=== PATIENT | female | born 1985 | race Caucasian/White ===

== ENCOUNTER 2018-04-05 00:55 | Inpatient (IN) | payer BC, MEDICAID, OTHER ==
[2018-04-04 20:00] VITALS: BP 101/62
[~2018-04-05] VITALS: Ht 160 cm; Wt 54.4 kg
--- NOTE | 2018-04-05 01:00 | NUR ---
PT BIBS. COMP OF "SUDDEN L SIDE BACK/LEG PAIN WHILE DANCING' -SOB. -N/V -DIZZINESS. MD AT BEDSIDE.
[2018-04-05] MEDS ORDERED: HYDROMORPHONE 1 MG/1 ML DISP.SYRIN ONE (01:50)
[2018-04-05] MEDS ORDERED: KETOROLAC TROMETHAMINE INJ 60 MG/2 ML VIAL IM ONE ×2 (01:50→02:00)
[2018-04-05] MEDS ORDERED: HYDROMORPHONE 1 MG/1 ML DISP.SYRIN IM ONE (02:00)
--- NOTE | 2018-04-05 03:29 | NUR ---
Patient is resting comfortably in bed with eyes closed. Easily aroused. VSS
[2018-04-05] MEDS ORDERED: oxyCODONE/APAP (5/325 MG) 1 UDTAB TABLET ONE (03:44)
[2018-04-05] MEDS ORDERED: DIAZEPAM 5 MG TABLET ONE (03:44)
[2018-04-05] MEDS ORDERED: oxyCODONE/APAP (5/325 MG) 1 UDTAB TABLET PO ONE (04:00)
[2018-04-05] MEDS ORDERED: DIAZEPAM 10 MG TABLET PO ONE (04:00)
[2018-04-05 05:00] LABS: BASOPHILS # (AUTO) 0.1 /CMM (0.0-0.2); BASOPHILS % (AUTO) 0.8 % (0.0-2.0); EOSINOPHILS % (AUTO) 0.8 % (0.0-6.0); HEMATOCRIT 37 % (33-45); HEMOGLOBIN 12.4 g/dL (11.5-14.8); LYMPHOCYTES # (AUTO) 2.5 /CMM (0.8-4.8); LYMPHOCYTES % (AUTO) 27.7 % (20.0-44.0); MEAN CORPUSCULAR HGB CONC 33 g/dl (31.0-36.0); MEAN CORPUSCULAR VOLUME 90 fL (82-100); MONOCYTES # (AUTO) 0.8 /CMM (0.1-1.30); MONOCYTES % (AUTO) 8.9 % (2.0-12.0); NEUTROPHILS # (AUTO) 5.5 /CMM (1.8-8.9); NEUTROPHILS % (AUTO) 61.8 % (43.0-81.0); PLATELET COUNT (AUTO) 148 /CMM (150-450); RED BLOOD CELL COUNT(AUTO) 4.11 MIL/uL (4.0-5.2); WHITE BLOOD COUNT (AUTO) 8.9 K/uL (4.3-11.0)
[2018-04-05] MEDS ORDERED: IV NS 0.9% 1,000 ML IV PRN (05:03)
[2018-04-05 05:04] LABS: CALCIUM, SERUM 8.6 mg/dL (8.5-10.1); CREATININE 0.7 mg/dL (0.6-1.3); POTASSIUM 4.3 mmol/L (3.5-5.1)
[2018-04-05] MEDS ORDERED: ACETAMINOPHEN 325 MG TABLET PO PRN (05:30)
[2018-04-05] MEDS ORDERED: ZOLPIDEM TARTRATE 5 MG TABLET PO PRN (05:30)
[2018-04-05] MEDS ORDERED: MAG HYDROX/AL HYDROX/SIMETH 30 ML UDC PO PRN (05:30)
[2018-04-05] MEDS ORDERED: Z GUARD REMEDY 2 OZ OINT TP PRN (05:30)
[2018-04-05] MEDS ORDERED: MAGNESIUM HYDROXIDE 30 ML UDC PO PRN (05:30)
[2018-04-05] MEDS ORDERED: ONDANSETRON HCL/PF 4 MG/2 ML VIAL IVP PRN (05:30)
[2018-04-05 05:31] LABS: MAGNESIUM 1.8 mg/dL (1.8-2.4); PHOSPHORUS 3.5 mg/dL (2.5-4.9)
--- NOTE | 2018-04-05 05:37 | NUR ---
REPORT GIVEN TO ABDOUL BIRD.
--- NOTE | 2018-04-05 06:37 | NUR ---
MS RN NOTES AWAKE & RESPONSIVE. NOT IN ANY DISTRESS. NO SOB NOTED. DENIES ANY PAIN OR DISCOMFORT AT THIS TIME. WITH IV-HL PATENT & INTACT. CALL LIGHT WITHIN REACH. BED IN LOWEST POSITION. SR UP X 3 WITH BED ALARM ON FOR SAFETY. WILL ENDORSE TO NEXT SHIFT.
[2018-04-05 08:00] VITALS: BP 110/70
--- NOTE | 2018-04-05 08:00 | NUR ---
RN NOTES RECEIVED PATIENT IN THE BED A/A/O X4, PATIENT WAS NO ACUTE RESPIRATORY DISTRESS, V/S STABLE WAS COMPLAINING OF LOWER BACK PAIN. IV ACCESS ON RIGHT AC AREA INTACT. NEEDS ATTENDED AND ANTICIPATED, FRIEND NEXT TO THE BED, CALL LIGHT WITHIN TO REACH, CONTINUED MONITORING.
[2018-04-05] MEDS: CYCLOBENZAPRINE 10 MG TABLET PO SCH ×2 (08:18→16:22)
[2018-04-05] MEDS: HYDROMORPHONE INJ 2 MG/ML DISP.SYRIN IV PRN ×2 (08:20→13:00)
--- NOTE | 2018-04-05 08:20 | NUR ---
RN NOTES ADMINISTERED DILAUDID 0.5 MG/ML IV PUSH PER PATIENT REQUEST FOR PAIN LOWER BACK 08/02, V/S TAKEN BP- 110/70, P-60. CONTINUED MONITORING.
--- NOTE | 2018-04-05 13:00 | NUR ---
RN NOTES ADMINISTERED ZOFRAN 4 MG/ML IV PUSH FOR NAUSEA AND VOMITING, AND DILAUDID 0.5 MG/ML IV PUSH FOR LOWER BACK PAIN 09/01 PER PATIENT REQUEST, V/S TAKEN BP 120/71, P-76, CONTINUED MONITORING. FRIEND NEXT TO THE BED.
--- NOTE | 2018-04-05 13:40 | NUR ---
RN NOTES PATIENT BONE DENSITY TECHNICIAN FOR CT OF LOWER LUMBAR , AND SACRUM PER MD ORDER.
--- NOTE | 2018-04-05 14:00 | NUR ---
RN NOTES PATIENT BACK FROM CT STABLE, MEDICATION WERE ADMINISTERED FOR NAUSEA, AND PAIN EFFECTIVE. CONTINUED MONITORING.
[2018-04-05] MEDS ORDERED: KEY,NONCONTROL,TO KEEP IN PYXI 1 EA MC ONE (15:06)
[2018-04-05 16:00] VITALS: BP 101/56
[2018-04-05] MEDS: HYDROCODONE/APAP 5/325MG 1 EACH TABLET PO PRN ×2 (16:27→21:27)
--- NOTE | 2018-04-05 16:27 | NUR ---
RN NOTES ADMINISTERED NARCO 5/325 MG PO PRN FOR LOWER BACK PAIN 08/02 PER PATIENT REQUEST, V/S TAKEN BP 101/50, P-50, CONTINUED MONITORING.
--- NOTE | 2018-04-05 18:00 | NUR ---
RN NOTES PATIENT REFUSED TO TRANSFER ANOTHER HOSPITAL, WANTED TO SIGN AMA. NOTIFIED Dr ANTONIO, AND CASE MANAGEMENT. CASE MANAGEMENT SPOKE TO THE PATIENT AND EXPLAINED REASON FOR TRANSFER . PATIENT VERBALIZED UNDERSTANDING AND AGREE TO TRANSFER [facility] .
--- NOTE | 2018-04-05 18:45 | NUR ---
RN NOTES PATIENT GOING TO D/C [facility] AT [address] [facility]ANCE. CALLED AND GIVE REPORT RAY DINKEY MECHANIC. RN VERBALIZED UNDERSTANDING. ENDORSED ONCOMING NURSE FOR PLAN OF CARE.
--- NOTE | 2018-04-05 19:20 | NUR ---
MS RN OPENING NOTES Received patient in bed, alert, oriented x 4. Breathing even and unlabored. Not in any distress. Friend at bedside. No complaints as of this time. As per AM RN report, patient is for transfer to [facility], report was already given to RN Roman- Manager Women. To leave IV line upon discharge as per report. Call mendez within reach. Bed in low, locked position. Will monitor accordingly
[2018-04-05 20:00] VITALS: BP 101/62
--- NOTE | 2018-04-05 21:28 | NUR ---
RN NOTES Patient c/o back pain, 08/02. [place]far[place] 5 PO given as ordered. will continue to monitor
--- NOTE | 2018-04-05 23:26 | NUR ---
RN NOTES Patient for transfer to [facility]. report was already given to RN Superintendent Logging Denis by AMRGE Serra. IV access on RAC left as per report from AM RN. All documents including CD given to [facility] staff. Patient left in stable condition.
== END 2018-04-05 23:25 | disposition short-term general hospital (02) | DRG 347 ==
LOC: ER 01:13 → MED 05:24
DX: S39.002A Unspecified injury of muscle, fascia and tendon of lower back, initial encounter (principal); F32.9 Major depressive disorder, single episode, unspecified; G47.00 Insomnia, unspecified; W18.30XA Fall on same level, unspecified, initial encounter; Y93.41 Activity, dancing; Y92.89 Other specified places as the place of occurrence of the external cause; M54.9 Dorsalgia, unspecified
CPT/HCPCS: 36415; 72110-TC; 72131-TC; 72192-TC; 80048-TC; 80061-TC; 83735-TC; 84100-TC; 84702-TC; 85025-TC; 85610-TC; 85730-TC; G0378; J1170; J1885; J2405; J7030

== ENCOUNTER 2018-06-19 20:30 | Emergency (ER) | payer OTHER ==
[~2018-06-19] VITALS: Ht 160 cm; Wt 54.4 kg
--- NOTE | 2018-06-19 20:50 | NUR ---
PT BIBSELF C/O SAENZ, VOMITTING X 2 DAYS, VS STABLE, PLACED ON ER BED 2, SEEN AND EVAL DONE BY PA, AWAITING ORDERS.
[2018-06-19] MEDS ORDERED: IV NS 0.9% 1,000 ML BAG IV ONE (21:30)
[2018-06-19] MEDS ORDERED: ONDANSETRON 4 MG TAB.RAPDIS PO ONE (21:30)
[2018-06-19] MEDS ORDERED: METOCLOPRAMIDE HCL 10 MG/2 ML VIAL IV ONE (21:30)
[2018-06-19] MEDS ORDERED: diphenhydrAMINE HCL 50 MG/ML VIAL IV ONE (21:30)
[2018-06-19] MEDS ORDERED: METOCLOPRAMIDE HCL 10 MG/2 ML VIAL ONE (21:51)
[2018-06-19] MEDS ORDERED: diphenhydrAMINE HCL ELIX 25 MG/10 ML UDC ONE (21:51)
[2018-06-19] MEDS ORDERED: ONDANSETRON 4 MG TAB.RAPDIS ONE (21:51)
[2018-06-19] MEDS ORDERED: diphenhydrAMINE HCL 50 MG/ML VIAL ONE (21:53)
[2018-06-19 22:14] LABS: BASOPHILS % (AUTO) 0.4 % (0.0-2.0); EOSINOPHILS % (AUTO) 0.5 % (0.0-6.0); HEMATOCRIT 41 % (33-45); HEMOGLOBIN 13.7 g/dL (11.5-14.8); LYMPHOCYTES % (AUTO) 17.7 % (20.0-44.0); MEAN CORPUSCULAR HGB CONC 34 g/dl (31.0-36.0); MEAN CORPUSCULAR VOLUME 89 fL (82-100); MONOCYTES # (AUTO) 0.9 /CMM (0.1-1.30); MONOCYTES % (AUTO) 7.8 % (2.0-12.0); NEUTROPHILS # (AUTO) 8.2 /CMM (1.8-8.9); NEUTROPHILS % (AUTO) 73.6 % (43.0-81.0); PLATELET COUNT (AUTO) 156 /CMM (150-450); RED BLOOD CELL COUNT(AUTO) 4.55 MIL/uL (4.0-5.2); WHITE BLOOD COUNT (AUTO) 11.1 K/uL (4.3-11.0)
[2018-06-19 22:21] LABS: CREATININE 0.7 mg/dL (0.6-1.3); POTASSIUM 3.6 mmol/L (3.5-5.1)
[2018-06-19 22:27] LABS: ALBUMIN 4.3 g/dL (3.4-5.0); BILIRUBIN,DIRECT 0.1 mg/dL (0.0-0.2); BILIRUBIN,TOTAL 0.3 mg/dL (0.2-1.0); TOTAL PROTEIN, SERUM 7.9 g/dL (6.4-8.2)
--- NOTE | 2018-06-19 23:24 | NUR ---
Patient discharged to home in stable condition. Written rx and verbal after care instructions given. Patient verbalizes understanding of instruction.
[2018-06-19 23:25] VITALS: BP 112/77
== END 2018-06-19 23:26 | disposition home or self-care (01) ==
LOC: ER 20:31
DX: R11.2 Nausea with vomiting, unspecified (principal); R51 Headache; F12.90 Cannabis use, unspecified, uncomplicated; M54.9 Dorsalgia, unspecified; F32.9 Major depressive disorder, single episode, unspecified; G47.00 Insomnia, unspecified; Z90.89 Acquired absence of other organs; Z91.018 Allergy to other foods
CPT/HCPCS: 36415; 80048; 80076; 85025; 96361; 96374; 96375; 99283; J1200; J2765; J7030; Q0162; Q0163

== ENCOUNTER 2018-08-21 05:41 | Emergency (ER) | payer OTHER ==
[~2018-08-21] VITALS: Ht 160 cm; Wt 54.4 kg
--- NOTE | 2018-08-21 05:45 | NUR ---
TO BED 2 BIB PARAMEDICS C/O N/V X 2 DAYS, PT SEEN AT URGENT CARE DX'D WITH STREP THROAT AND WAS PRESCRIBED AMOXICILLIN AND ZOFRAN. PT AAOX4 NO ACUTE DISTRESS NOTED, RESP EVEN AND UNLABORED. PENDING ER MD CAI.
--- NOTE | 2018-08-21 05:50 | NUR ---
PT UNABLE TO PROVIDE URINE SAMPLE AT THIS TIME.
[2018-08-21] MEDS ORDERED: DEXAMETHASONE SOD PHOSPHATE 10 MG/ML VIAL ONE (06:25)
[2018-08-21] MEDS ORDERED: KETOROLAC TROMETHAMINE 15 MG/ML VIAL ONE (06:25)
[2018-08-21] MEDS ORDERED: ONDANSETRON HCL/PF 4 MG/2 ML VIAL ONE (06:26)
[2018-08-21] MEDS ORDERED: KETOROLAC TROMETHAMINE INJ 30 MG/ML VIAL IV ONE (06:30)
[2018-08-21] MEDS ORDERED: DEXAMETHASONE SOD PHOSPHATE 10 MG/ML VIAL IV ONE (06:30)
[2018-08-21] MEDS ORDERED: ONDANSETRON HCL/PF 4 MG/2 ML VIAL IVP ONE (06:30)
[2018-08-21] MEDS ORDERED: IV NS 0.9% 1,000 ML BAG IV ONE (06:30)
--- NOTE | 2018-08-21 06:36 | NUR ---
PT MEDICATED BY RN PER ER MD ORDER.
[2018-08-21 06:39] LABS: BASOPHILS % (AUTO) 0.4 % (0.0-2.0); EOSINOPHILS % (AUTO) 0.1 % (0.0-6.0); HEMATOCRIT 39 % (33-45); HEMOGLOBIN 13.3 g/dL (11.5-14.8); LYMPHOCYTES # (AUTO) 0.8 /CMM (0.8-4.8); LYMPHOCYTES % (AUTO) 6.9 % (20.0-44.0); MEAN CORPUSCULAR HGB CONC 34 g/dl (31.0-36.0); MEAN CORPUSCULAR VOLUME 88 fL (82-100); MONOCYTES # (AUTO) 1.1 /CMM (0.1-1.30); MONOCYTES % (AUTO) 9.5 % (2.0-12.0); NEUTROPHILS # (AUTO) 9.8 /CMM (1.8-8.9); NEUTROPHILS % (AUTO) 83.1 % (43.0-81.0); PLATELET COUNT (AUTO) 118 /CMM (150-450); RED BLOOD CELL COUNT(AUTO) 4.41 MIL/uL (4.0-5.2); WHITE BLOOD COUNT (AUTO) 11.8 K/uL (4.3-11.0)
[2018-08-21 06:47] LABS: CALCIUM, SERUM 9.2 mg/dL (8.5-10.1); CREATININE 0.8 mg/dL (0.6-1.3); POTASSIUM 3.9 mmol/L (3.5-5.1)
[2018-08-21 07:05] LABS: MONOTEST NEGATIVE (NEGATIVE)
--- NOTE | 2018-08-21 07:13 | NUR ---
REPORT GIVEN TO AM SHIFT MARGE SILVA
[2018-08-21] MEDS ORDERED: PENICILLIN G BENZATHINE 2.4 MMU/4 ML ML IM ONE ×2 (07:30→07:43)
--- NOTE | 2018-08-21 08:13 | NUR ---
PIV REMOVED, RX PROVIDED. Patient discharged to home in stable condition. Written and verbal after care instructions given. Patient verbalizes understanding of instruction.
[2018-08-21 08:14] VITALS: BP 108/66
== END 2018-08-21 08:15 | disposition home or self-care (01) ==
LOC: ER 05:47
DX: J02.0 Streptococcal pharyngitis (principal); E86.0 Dehydration; F32.9 Major depressive disorder, single episode, unspecified; G47.00 Insomnia, unspecified; Z90.89 Acquired absence of other organs; Z91.018 Allergy to other foods
CPT/HCPCS: 36415; 80048; 84703; 85025; 86308; 96361; 96372; 96374; 96375; 99283; J0558; J1100; J1885; J2405; J7030

== ENCOUNTER 2020-03-29 21:47 | Emergency (ER) | payer MEDICAID, OTHER ==
[~2020-03-29] VITALS: Ht 160 cm; Wt 59.0 kg
[2020-03-29 22:12] VITALS: BP 132/78
[2020-03-29] MEDS ORDERED: GELATIN SPONGE,ABSORBABLE 1 SPONGE SPONGE TP ONE (22:18)
== END 2020-03-29 23:33 | disposition home or self-care (01) ==
LOC: ER 21:55
DX: S61.012A Laceration without foreign body of left thumb without damage to nail, initial encounter (principal); F32.9 Major depressive disorder, single episode, unspecified; G47.00 Insomnia, unspecified; Z90.89 Acquired absence of other organs; Z91.018 Allergy to other foods; X58.XXXA Exposure to other specified factors, initial encounter; Y93.89 Activity, other specified; Y92.89 Other specified places as the place of occurrence of the external cause; Y99.8 Other external cause status
CPT/HCPCS: 99282; A6403

== ENCOUNTER 2020-08-27 09:56 | Emergency (ER) | payer MEDICAID ==
[~2020-08-27] VITALS: Ht 160 cm; Wt 62.1 kg
--- NOTE | 2020-08-27 09:58 | NUR ---
Dr. Geronimo at the bedside.
--- NOTE | 2020-08-27 10:00 | NUR ---
The patient is BIBRA 102 from urgent care c/o SOB post bee sting, given a total of 0.6mg epi, 50mg benadryl and 5mg albuterol CUSTOMER EXPERIENCE INTERN in ER. The patient with c/o of mild SOB and tightness in throat which the patient states is getting better. Noted undereye puffiness. The patient denies pain. Patient`s oxygen saturation in room air is WNL. Will continue to monitor the patient.
--- NOTE | 2020-08-27 10:18 | NUR ---
The patient is in room air and denies SOB. Denies having tightness in throat. Respiration regular and unlabored.
[2020-08-27] MEDS ORDERED: EPIN0.3P3 IJ (10:34)
[2020-08-27 10:43] VITALS: BP 137/61
--- NOTE | 2020-08-27 10:43 | NUR ---
Patient discharged to home in stable condition. Written and verbal after care instructions given. Patient verbalizes understanding of instruction.IV removed. Catheter intact and site benign. Pressure and 4x4 applied to site. No bleeding noted.
[2020-08-28] MEDS ORDERED: PRED20TA PO (10:10)
[2020-08-28] MEDS ORDERED: FAMO-131 PO (10:10)
[2020-08-28] MEDS ORDERED: DIPH25CA83 PO (10:10)
[2020-08-28] MEDS ORDERED: ONDA4TAB5 PO (11:21)
== END 2020-08-27 10:43 | disposition home or self-care (01) ==
LOC: ER 10:04
DX: T63.441A Toxic effect of venom of bees, accidental (unintentional), initial encounter (principal); R22.0 Localized swelling, mass and lump, head; F32.9 Major depressive disorder, single episode, unspecified; G47.00 Insomnia, unspecified; Z90.89 Acquired absence of other organs; Z91.018 Allergy to other foods; Y92.89 Other specified places as the place of occurrence of the external cause

== ENCOUNTER 2020-08-28 09:26 | Emergency (ER) | payer MEDICAID ==
[~2020-08-28] VITALS: Ht 160 cm; Wt 61.2 kg
[~2020-08-28 09:26] MED LIST: EPIN0.3P3 IJ
--- NOTE | 2020-08-28 09:35 | NUR ---
PATIENT CAME IN TO THE ER C/O DIZZY, HEADACHE, BODY PAIN SINCE LAST NIGHT. SEEN YESTERDAY S/P BEE STING. ON ROOM AIR, BREATHING EVENLY AND UNLABORED. CONNECTED TO THE MONITOR AND PULSE OX. KEPT COMFORTABLE, WILL CONTINUE TO MONITOR ACCORDINGLY.
--- NOTE | 2020-08-28 09:46 | NUR ---
DR CHOWDHURY AT BEDSIDE FOR EVAL.
[2020-08-28] MEDS ORDERED: methylPREDNISolone SOD SUCC 125 MG/2ML VIAL ONE (09:51)
[2020-08-28] MEDS ORDERED: diphenhydrAMINE HCL 50 MG/ML VIAL ONE (09:51)
[2020-08-28] MEDS ORDERED: FAMOTIDINE/PF INJ 20 MG/2 ML VIAL IV ONE ×2 (09:51→10:00)
[2020-08-28] MEDS ORDERED: diphenhydrAMINE HCL 50 MG/ML VIAL IV ONE (10:00)
[2020-08-28] MEDS ORDERED: IV NS 0.9% 1,000 ML BAG IV ONE (10:00)
[2020-08-28] MEDS ORDERED: methylPREDNISolone SOD SUCC 125 MG/2ML VIAL IV ONE (10:00)
[2020-08-28] MEDS ORDERED: DIPH25CA83 PO (10:10)
[2020-08-28] MEDS ORDERED: PRED20TA PO (10:10)
[2020-08-28] MEDS ORDERED: FAMO-131 PO (10:10)
--- NOTE | 2020-08-28 10:11 | NUR ---
IV LINE STARTED BLOOD DRAWN AND SENT TO LAB.
[2020-08-28 10:20] LABS: BASOPHILS % (AUTO) 0.5 % (0.0-2.0); EOSINOPHILS % (AUTO) 1.7 % (0.0-6.0); HEMATOCRIT 40 % (33-45); HEMOGLOBIN 13.4 g/dL (11.5-14.8); LYMPHOCYTES # (AUTO) 2.2 K/uL (0.8-4.8); LYMPHOCYTES % (AUTO) 23.9 % (20.0-44.0); MEAN CORPUSCULAR HGB CONC 34 g/dl (31.0-36.0); MEAN CORPUSCULAR VOLUME 88 fL (82-100); MONOCYTES # (AUTO) 0.8 K/uL (0.1-1.30); MONOCYTES % (AUTO) 9.3 % (2.0-12.0); NEUTROPHILS # (AUTO) 5.8 K/uL (1.8-8.9); NEUTROPHILS % (AUTO) 64.6 % (43.0-81.0); PLATELET COUNT (AUTO) 166 K/uL (150-450); RED BLOOD CELL COUNT(AUTO) 4.55 MIL/uL (4.0-5.2)
[2020-08-28 10:23] LABS: CREATININE 0.7 mg/dL (0.6-1.3); POTASSIUM 3.9 mmol/L (3.5-5.1)
[2020-08-28 10:29] LABS: BILIRUBIN,DIRECT 0.1 mg/dL (0.0-0.2); BILIRUBIN,TOTAL 0.4 mg/dL (0.2-1.0); TOTAL PROTEIN, SERUM 7.8 g/dL (6.4-8.2)
[2020-08-28 11:02] LABS: BILIRUBIN,URINE Negative (NEGATIVE); LEUKOCYTE ESTERASE ,URINE Negative (NEGATIVE); NITRITE, URINE Negative (NEGATIVE); PROTEIN,URINE Negative (NEGATIVE); UGLUCOSE Negative (NEGATIVE); UROBILINOGEN,URINE 0.2 EU/dL (0.2)
[2020-08-28 11:04] LABS: COLOR,URINE STRAW (YELLOW)
[2020-08-28] MEDS ORDERED: ONDA4TAB5 PO (11:21)
[2020-08-28 11:25] LABS: BACTERIA,URINE Rare /HPF (None Seen); RBC,URINE NONE SEEN /HPF (0-2); SQUAMOUS EPITHELIAL CELL,UR Few /HPF (None Seen); WBC,URINE 0-2 /HPF (0-3)
[2020-08-28 11:51] VITALS: BP 121/72
== END 2020-08-28 11:52 | disposition home or self-care (01) ==
LOC: ER 09:31
DX: T63.441A Toxic effect of venom of bees, accidental (unintentional), initial encounter (principal); R55 Syncope and collapse; R11.2 Nausea with vomiting, unspecified; F32.9 Major depressive disorder, single episode, unspecified; G47.00 Insomnia, unspecified; Z90.89 Acquired absence of other organs; Z91.018 Allergy to other foods; Z79.899 Other long term (current) drug therapy; Y92.89 Other specified places as the place of occurrence of the external cause
CPT/HCPCS: 36415; 71045; 80048; 80076; 81001; 83690; 84703; 85025; 93005; 96361; 96374; 96375; 99285; J1200; J2930; J3490; J7030

== ENCOUNTER 2020-09-11 11:49 | Emergency (ER) | payer MEDICAID ==
[~2020-09-11] VITALS: Ht 160 cm; Wt 61.2 kg
[~2020-09-11 11:49] MED LIST changes: +DIPH25CA83 PO; +FAMO-131 PO; +ONDA4TAB5 PO; +PRED20TA PO
--- NOTE | 2020-09-11 12:02 | NUR ---
ER BED 3, C/O MD COLBY AT BEDSIDE
--- NOTE | 2020-09-11 12:07 | NUR ---
URINE COLLECTED, SENT TO LAB
[2020-09-11] MEDS ORDERED: ONDANSETRON 4 MG TAB.RAPDIS ONE (12:12)
[2020-09-11] MEDS ORDERED: ONDANSETRON HCL 4 MG/5 ML SOLUTION PO ONE (12:30)
[2020-09-11] MEDS ORDERED: IBUPROFEN 600 MG TABLET PO ONE (12:30)
[2020-09-11] MEDS ORDERED: IBUPROFEN 600 MG TABLET ONE (12:38)
[2020-09-11 12:47] LABS: BILIRUBIN,URINE NEGATIVE (NEGATIVE); COLOR,URINE YELLOW (YELLOW); LEUKOCYTE ESTERASE ,URINE NEGATIVE (NEGATIVE); NITRITE, URINE NEGATIVE (NEGATIVE); PROTEIN,URINE NEGATIVE (NEGATIVE); UGLUCOSE NEGATIVE (NEGATIVE); UROBILINOGEN,URINE 0.2 EU/dL (0.2)
--- NOTE | 2020-09-11 13:22 | NUR ---
wheeled patient to ct.
[2020-09-11] MEDS ORDERED: IV NS 0.9% 1,000 ML BAG IV ONE (13:30)
[2020-09-11 13:42] LABS: BASOPHILS % (AUTO) 0.5 % (0.0-2.0); EOSINOPHILS % (AUTO) 1.1 % (0.0-6.0); HEMATOCRIT 36 % (33-45); LYMPHOCYTES # (AUTO) 3.1 K/uL (0.8-4.8); LYMPHOCYTES % (AUTO) 34.8 % (20.0-44.0); MEAN CORPUSCULAR HGB CONC 33 g/dl (31.0-36.0); MEAN CORPUSCULAR VOLUME 88 fL (82-100); MONOCYTES # (AUTO) 0.7 K/uL (0.1-1.30); MONOCYTES % (AUTO) 8.1 % (2.0-12.0); NEUTROPHILS # (AUTO) 4.9 K/uL (1.8-8.9); NEUTROPHILS % (AUTO) 55.5 % (43.0-81.0); PLATELET COUNT (AUTO) 161 K/uL (150-450); RED BLOOD CELL COUNT(AUTO) 4.09 MIL/uL (4.0-5.2); WHITE BLOOD COUNT (AUTO) 8.8 K/uL (4.3-11.0)
[2020-09-11 13:51] LABS: CALCIUM, SERUM 8.8 mg/dL (8.5-10.1); CREATININE 0.7 mg/dL (0.6-1.3); POTASSIUM 4.1 mmol/L (3.5-5.1)
[2020-09-11 13:57] LABS: ALBUMIN 3.3 g/dL (3.4-5.0); BILIRUBIN,DIRECT 0.1 mg/dL (0.0-0.2); BILIRUBIN,TOTAL 0.3 mg/dL (0.2-1.0); TOTAL PROTEIN, SERUM 6.8 g/dL (6.4-8.2)
[2020-09-11] MEDS ORDERED: HYDR-3972 PO (14:07)
[2020-09-11 14:20] VITALS: BP 100/61
== END 2020-09-11 14:20 | disposition home or self-care (01) ==
LOC: ER 11:59
DX: N83.202 Unspecified ovarian cyst, left side (principal); F32.9 Major depressive disorder, single episode, unspecified; G47.00 Insomnia, unspecified; Z91.018 Allergy to other foods; Z79.899 Other long term (current) drug therapy
CPT/HCPCS: 36415; 74176; 80048; 80076; 81003; 83690; 84703; 85025; 96360; 99284; J7030; Q0162

== ENCOUNTER 2021-10-07 10:07 | Emergency (ER) | payer MEDICAID ==
[~2021-10-07] VITALS: Ht 160 cm; Wt 62.6 kg
[~2021-10-07 10:07] MED LIST changes: +HYDR-3972 PO
--- NOTE | 2021-10-07 10:15 | NUR ---
SORE THROAT X 2 DAYS, THROAT TIGHTNESS, DIFFICULTY BREATHING SINCE 5AM STATES "WAS EXPOSED TO ORAL GONORRHEA." ATTACHED TO MONITOR, VITALS ARE WITHI NORMAL LIMITS. SATTING AT 99% ON ROOM AIR. AWAITING MD ORDERS.
[2021-10-07] MEDS ORDERED: DEXAMETHASONE SOD PHOSPHATE 4 MG/ML VIAL ONE (10:26)
[2021-10-07] MEDS ORDERED: IPRATROPIUM NEB FS 0.5 MG/2.5 ML AMPUL.NEB NEB ONE (10:30)
[2021-10-07] MEDS ORDERED: ALBUTEROL FS 2.5 MG/3 ML VIAL.NEB NEB ONE (10:30)
[2021-10-07] MEDS ORDERED: DEXAMETHASONE SOD PHOSPHATE 4 MG/ML VIAL IV ONE (10:30)
[2021-10-07] MEDS ORDERED: ALBUTEROL FS 2.5 MG/3 ML VIAL.NEB ONE ×2 (10:39→10:43)
[2021-10-07] MEDS ORDERED: IPRATROPIUM NEB FS 0.5 MG/2.5 ML AMPUL.NEB ONE (10:41)
--- NOTE | 2021-10-07 10:44 | NUR ---
STREP TEST AND GC COLLECTED AND SENT TO LAB
--- NOTE | 2021-10-07 10:45 | NUR ---
RT AT BEDSIDE
--- NOTE | 2021-10-07 10:55 | NUR ---
Breathing treatment in progress at .
[2021-10-07] MEDS ORDERED: DOXY100C2 PO (11:27)
[2021-10-07] MEDS ORDERED: CEFTRIAXONE 500 MG VIAL IM ONE (11:30)
[2021-10-07] MEDS ORDERED: LIDOCAINE /MPF 1% VIAL 5 ML VIAL ONE (11:51)
[2021-10-07] MEDS ORDERED: CEFTRIAXONE 500 MG VIAL ONE (11:51)
--- NOTE | 2021-10-07 12:00 | NUR ---
IV removed. Catheter intact and site benign. Pressure and 4x4 applied to site. No bleeding noted.Patient discharged to home in stable condition. Written and verbal after care instructions given. Patient verbalizes understanding of instruction.
[2021-10-07 12:07] VITALS: BP 133/91
== END 2021-10-07 12:08 | disposition home or self-care (01) ==
LOC: ER 10:14
DX: J02.9 Acute pharyngitis, unspecified (principal); F32.A Depression, unspecified; Z91.018 Allergy to other foods; Z79.899 Other long term (current) drug therapy
CPT/HCPCS: 99285; 96374; 87070; 87880; 87110; 96372; 94640 ×2; J1100; J0696; J3490; 86403-TC